=== PATIENT | male | born 1980 | race Caucasian/White ===

== ENCOUNTER → 2020-12-28 14:28 | Outpatient (BNVA) | payer OTHER, SELFPAY | PROVIDERS: PCP Internal Medicine; Referring Provider Internal Medicine; Visit Provider Surgery ==

== ENCOUNTER 2021-01-31 20:08 | Inpatient (IN) | payer OTHER, SELFPAY ==
[2021-01-31 20:47] VITALS: BP 124/64; PULSE 80; TEMP 36.7; O2SAT 99
[2021-01-31] MEDS: Lithium Carbonate ER 450 MG TABLET.ER PO (23:58)
[2021-01-31] MEDS: LORazepam 1 MG TABLET PO (23:58)
[2021-01-31] MEDS: Lithium Carbonate ER 300 MG TABLET.ER PO (23:58)
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
[2021-02-01] MEDS: Levothyroxine Sodium 75 MCG TABLET PO (06:28)
[2021-02-01 08:29] VITALS: BP 104/59; PULSE 64; RESP 18; TEMP 36.5; O2SAT 97
[2021-02-01] MEDS: Nicotine 21 MG PATCH.TD24 TRANSDERMA (08:32)
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
--- NOTE | 2021-02-01 16:12 | P.CONIM_ITS ---
History of Present Illness Data of Consult Service Date: 02/01/21 Requesting physician: Jean Garrido Primary Care Provider: Unknown Physician HPI Reason for consult: Routine Medical H&P This is a 40 yo M with a PMH of hypothyroid who is admitted on M3. Medical services are consulted for routine medical H&P as he has been transferred from another facility. Pt seen and examined in his room. He is comfortable and does not endorse any medical complaints. He endorses a personal history of hypothyroidism for which he is on levothyroxine. Review of Systems Review of Systems: General - no fevers or chills Cardiovascular - no chest pain Respiratory - no shortness of breath or cough Abdominal- no abdominal pain, nausea, vomiting, diarrhea PMFSH Medical History (Updated 02/01/21 @ 14:12 by Jean Garrido) Asthma Bipolar disorder Surgical History History of throat surgery Hx of knee surgery Social History Household Members: None and Other Housing: Apartment Do you presently have visiting nurse or other home services: No Alcohol intake: current Patient Tobacco Use Status: Current everyday Tobacco user Tobacco use type: Cigarette Cigarette Packs Per Day: 1 Cigarettes Per Day: 20.0 Smoked in Last 30 Days: No e-Cigarette/Vaping Use: Currently Using Patient Interested in Nicotine Replacement: Yes Patient Given Instructions on How to Stop Smoking: No Second Hand Smoke Exposure: No Use of substances other than those prescribed or required for medical reasons: No Substance Use Type: Heroin Substance Use Frequency: Daily Currently Displaying Signs/Symptoms of Drug Intoxication Withdrawal: No Have you been hit, kicked, punched, or otherwise hurt by someone within the past year? If so, by whom?: No Do you feel safe in your current relationship?: No Is there a partner from a previous relationship who is making you feel unsafe now?: No Advance Directives: No Advance Directives Information Provided: Yes Do you have thoughts of harming others: None Do you have a plan to hurt others: No Plan Recently lost weight without trying: No Nutrition Risks: No Nutritional Risk Poor oral hygiene: No service: No Sexual orientation: Straight/Heterosexual Meds Allergies Allergy/AdvReac Type Severity Reaction Status Date / Time haloperidol [From HALDOL] Allergy Intermediate SKIN CRAWL Verified 01/31/21 22:18 Active Medications: Current Medications Generic Name Dose Route Start Last Admin Trade Name Freq PRN Reason Stop Dose Admin Acetaminophen 650 mg 01/31/21 20:22 Acetaminophen 325 Mg Tablet PO Q6H PRN Headache/Pain Mild Scale (1-3) Al Hydroxide/Mg Hydroxide 30 ml 01/31/21 20:22 Magnesium Hydrox/Alum Hydrox 30 Ml Oral.Susp PO Q6H PRN Heartburn/Nausea Albuterol Sulfate 2 puff 01/31/21 21:15 Albuterol Sulfate 90 Mcg 8 Gm Inhaler INHALE Q4H PRN Shortness Of Breath Or Wheezing Amphetamine/Dextroamphetamine 30 mg 02/02/21 09:00 Dextroamphetami/Amphetamine Xr 10 Mg Cap.Er.24h PO DAILY [facility] Amphetamine/Dextroamphetamine 30 mg 02/01/21 11:15 02/01/21 12:15 Dextroamphetami/Amphetamine Xr 10 Mg Cap.Er.24h PO 30 mg ONCE [facility] Administration Dextroamphetamine Sulfate 10 mg 02/01/21 16:00 Dextroamphetamine Sulfate 5 Mg Tablet PO DAILY [facility] Hydroxyzine HCl 25 mg 01/31/21 20:22 Hydroxyzine Hcl 25 Mg Tablet PO BEDTIME PRN Anxiety Levothyroxine Sodium 75 mcg 02/01/21 06:00 02/01/21 06:28 Levothyroxine Sodium 75 Mcg Tablet PO 75 mcg DAILY@0600 [facility] Administration [place] Carbonate 1,200 mg 01/31/21 22:00 02/01/21 00:09 [place] Carbonate Er 300 Mg Tablet.Er PO Not Given BEDTIME [facility] Lorazepam 1 mg 01/31/21 20:36 01/31/21 23:58 Lorazepam 1 Mg Tablet PO 1 mg TID PRN Administration Anxiety Lorazepam 1 mg 02/01/21 15:24 Lorazepam 1 Mg Tablet PO 02/05/21 15:23 Q2H PRN Breakthrough alcohol withdrawa Magnesium Hydroxide 30 ml 01/31/21 20:22 Milk Of Magnesia 30 Ml Oral.Susp PO DAILY PRN Constipation Nicotine 21 mg 02/01/21 09:00 02/01/21 08:32 Nicotine 21 Mg Patch.Td24 TRANSDERMA 21 mg DAILY [facility] Administration Nicotine Polacrilex 4 mg 01/31/21 20:32 Nicotine Polacrilex 2 Mg Gum BUCCAL Q2H PRN Nicotine Cravings Trazodone HCl 50 mg 01/31/21 20:22 Trazodone Hcl 50 Mg Tablet PO BEDTIME PRN Insomnia Home Medications Medication Instructions Recorded Confirmed Last Taken Type dextroamphetamine 10 mg tablet 10 mg PO BEDTIME 12/28/20 01/31/21 01/30/21 History dextroamphetamine-amphetamine ER 1 cap PO DAILY 12/28/20 01/31/21 01/31/21 10:21 History 30 mg 24hr capsule,extend release levothyroxine 75 mcg tablet 75 mcg PO DAILY 12/28/20 01/31/21 01/31/21 07:50 History lithium carbonate 300 mg 1,200 mg PO BEDTIME 12/28/20 01/31/21 01/31/21 10:21 History tablet,extended release lorazepam 1 mg tablet 1 mg PO TID PRN 12/28/20 01/31/21 01/31/21 12:50 History albuterol sulfate [ProAir HFA] 2 puff INHALATION Q4H PRN 01/31/21 01/31/21 Unknown History Physical Exam Vital Signs and Narrative: Vital Signs: Last Vital Signs Temp 97.7 F 02/01/21 08:29 Pulse 64 02/01/21 08:29 Resp 18 02/01/21 08:29 BP 104/59 L 02/01/21 08:29 Pulse Ox 97 02/01/21 08:29 Const: Other: General - no acute distress, appears comfortable Cardiovascular - regular rate and rhythm, S1-S2 Lungs - normal respiratory effort, clear to auscultation bilaterally, no wheezing Abdomen - soft, nontender, no rebound or guarding Extremities - no edema bilaterally Neuro - awake and alert, no focal deficits Assessment and Plan (1) Hypothyroidism: Status: Acute This is a 40 yo M with a PMH of hypothyroidism, ENZO s/p surgery (? presumed uvulopalatopharyngoplasty - UPPP) who is admitted to . Medical consultation sought for routine medical H&P. Patient has no active medical issues. Continue his baseline synthroid. Perform routine blood work if not completed at transferring facility or if abnormal, repeat it here. Continue care per primary team. Please re-consult if any issues arise.
[2021-02-01] MEDS: Dextroamphetamine Sulfate 5 MG TABLET 10 MG PO (17:22)
[2021-02-01 18:46] LABS: Amphetamine Screen Urine POSITIVE (Not Detect); Barbiturates, Urine Not Detected (Not Detect); Benzodiazepines Screen Urine Not Detected (Not Detect); Cannabinoid Screen Urine Not Detected (Not Detect); Cocaine Screen Urine Not Detected (Not Detect); Opiate Screen Urine Not Detected (Not Detect); Phencyclidine Screen Urine Not Detected (Not Detect)
[2021-02-01] MEDS: Lithium Carbonate ER 300 MG TABLET.ER 1200 MG PO (20:55)
[2021-02-01] MEDS: LORazepam 1 MG TABLET PO (21:05)
[2021-02-01 21:36] VITALS: BP 119/77; PULSE 88; TEMP 36.7; O2SAT 98
[2021-02-02] MEDS: Levothyroxine Sodium 75 MCG TABLET PO (06:23)
[2021-02-02] MEDS: Nicotine 21 MG PATCH.TD24 TRANSDERMA (09:08)
[2021-02-02 09:22] VITALS: BP 118/81; PULSE 73; RESP 18; TEMP 36.3; O2SAT 99
[2021-02-02] MEDS: ARIPiprazole 5 MG TABLET PO (12:23)
--- NOTE | 2021-02-02 14:07 | HO.PSYCHPN ---
Subjective Subjective Date of Service: 02/02/21 Reason For Visit: SI Interim History: pt in a better mood this morning, rouses himself from bed, less irritable, comes with MD to interview room. continues to reject the narrative of his female friend and the police. states he is not manic but has been spending more time depressed if anything in recent days. willing to discuss antidepressants. reports negative reactions to SSRIs and wellbutrin in the past (reliability of report unclear, memory ppor, does not recall specifics). agreeable to try abilify 5 mg for antidepressant and mood stabilizing effects. per staff, not attending groups, isolating. denying narrative in the medical record. Mental Status Exam Mental Status Exam Narrative: lying in bed late morning. disheveled, poorly groomed. cooperative with interview. no PMA/PMR. speech nml in amount, rate, loudness, latency, prosody. thoughts linear and logical, just highly divergent from the information contained in the medical record. affect flexible, normo-intense, consistent with words and context, non-labile. mood depressed. denies SI. no HI/AVH endorsed. denies heavy alcohol consumption. Diagnostics Vital Signs (24Hr): Vital Signs - 24 hr 02/01/21 21:36 02/02/21 09:22 Temperature 98.0 F 97.3 F Pulse Rate 88 73 Respiratory Rate 18 Blood Pressure 119/77 118/81 Pulse Oximetry 98 99 Labs Labs: Laboratory Results - last 48 hr 02/01/21 18:10 Urine Opiates Screen Not Detected Ur Barbiturates Screen Not Detected Ur Phencyclidine Scrn Not Detected Ur Amphetamines Screen POSITIVE H U Benzodiazepines Scrn Not Detected Urine Cocaine Screen Not Detected U Marijuana (THC) Screen Not Detected Medications Medications Current Medications Generic Name Dose Route Start Last Admin Trade Name Freq PRN Reason Stop Dose Admin Acetaminophen 650 mg 01/31/21 20:22 Acetaminophen 325 Mg Tablet PO Q6H PRN Headache/Pain Mild Scale (1-3) Al Hydroxide/Mg Hydroxide 30 ml 01/31/21 20:22 Magnesium Hydrox/Alum Hydrox 30 Ml Oral.Susp PO Q6H PRN Heartburn/Nausea Albuterol Sulfate 2 puff 01/31/21 21:15 Albuterol Sulfate 90 Mcg 8 Gm Inhaler INHALE Q4H PRN Shortness Of Breath Or Wheezing Amphetamine/Dextroamphetamine 30 mg 02/02/21 09:00 02/02/21 09:08 Dextroamphetami/Amphetamine Xr 10 Mg Cap.Er.24h PO 30 mg DAILY [facility] Administration Amphetamine/Dextroamphetamine 30 mg 02/01/21 11:15 02/01/21 12:15 Dextroamphetami/Amphetamine Xr 10 Mg Cap.Er.24h PO 30 mg ONCE [facility] Administration Aripiprazole 5 mg 02/03/21 09:00 Aripiprazole 5 Mg Tablet PO DAILY [facility] Dextroamphetamine Sulfate 10 mg 02/02/21 16:00 Dextroamphetamine Sulfate 5 Mg Tablet PO DAILY@1600 [facility] Hydroxyzine HCl 25 mg 01/31/21 20:22 Hydroxyzine Hcl 25 Mg Tablet PO BEDTIME PRN Anxiety Levothyroxine Sodium 75 mcg 02/01/21 06:00 02/02/21 06:23 Levothyroxine Sodium 75 Mcg Tablet PO 75 mcg DAILY@0600 [facility] Administration [place] Carbonate 1,200 mg 01/31/21 22:00 02/01/21 20:55 [place] Carbonate Er 300 Mg Tablet.Er PO 1,200 mg BEDTIME [facility] Administration Lorazepam 1 mg 01/31/21 20:36 02/01/21 21:05 Lorazepam 1 Mg Tablet PO 1 mg TID PRN Administration Anxiety Lorazepam 1 mg 02/01/21 15:24 Lorazepam 1 Mg Tablet PO 02/05/21 15:23 Q2H PRN Breakthrough alcohol withdrawa Magnesium Hydroxide 30 ml 01/31/21 20:22 Milk Of Magnesia 30 Ml Oral.Susp PO DAILY PRN Constipation Nicotine 21 mg 02/01/21 09:00 02/02/21 09:08 Nicotine 21 Mg Patch.Td24 TRANSDERMA 21 mg DAILY [facility] Administration Nicotine Polacrilex 4 mg 01/31/21 20:32 Nicotine Polacrilex 2 Mg Gum BUCCAL Q2H PRN Nicotine Cravings Trazodone HCl 50 mg 01/31/21 20:22 Trazodone Hcl 50 Mg Tablet PO BEDTIME PRN Insomnia Allergies Allergies Allergy/AdvReac Type Severity Reaction Status Date / Time haloperidol [From HALDOL] Allergy Intermediate SKIN CRAWL Verified 01/31/21 22:18 Assessment & Plan Assessment & Plan (1) Hypothyroidism: Status: Acute Code(s): E03.9 - Hypothyroidism, unspecified Assessment and Plan: continue synthroid. consider checking TSH. (2) Bipolar disorder: Status: Acute Code(s): F31.9 - Bipolar disorder, unspecified Assessment and Plan: continue lithium; level in ED was 0.8, so no dose change indicated and pt has been compliant. started abilify for mood stabilizing and antidepressant effect on 02/02. personality factors may also being playing a substantial role in pt's behaviors. keep on the differential Dx. (3) Alcohol use disorder: Status: Acute Assessment and Plan: monitor for withdrawal symptoms and medicate as indicated. question of interaction between bipolar diathesis and drinking in controlling pt's recent behaviors. Greater than 50% of the session was spent on counseling and/or coordination of care Reason for contiued inpatient stay Substantial Risk for: harm to self
[2021-02-02] MEDS: Dextroamphetamine Sulfate 5 MG TABLET 10 MG PO (16:02)
[2021-02-02] MEDS: LORazepam 1 MG TABLET PO (18:44)
[2021-02-02 20:00] VITALS: BP 127/78; PULSE 94; RESP 18; TEMP 36.8; O2SAT 98
[2021-02-02] MEDS: Lithium Carbonate ER 300 MG TABLET.ER 1200 MG PO (21:21)
--- NOTE | 2021-02-02 23:57 | PC.NURSE ---
Toro is asleep in bed. No signs of acute alcohol withdrawal. Patient appears to be resting comfortably. Full CIWA assessment not done. Nurse will continue to monitor patient.
[2021-02-03] MEDS: LORazepam 1 MG TABLET PO (01:08)
--- NOTE | 2021-02-03 03:59 | PC.NURSE ---
Patient is currently sleeping. No signs of active withdrawal noted. Full CIWA assessment not done. Nurse will continue to monitor.
[2021-02-03 06:00] VITALS: BP 126/75; PULSE 72; RESP 18; TEMP 35.8; O2SAT 96
[2021-02-03] MEDS: Levothyroxine Sodium 75 MCG TABLET PO (06:50)
[2021-02-03] MEDS: ARIPiprazole 5 MG TABLET PO (08:52)
[2021-02-03] MEDS: Nicotine 21 MG PATCH.TD24 TRANSDERMA (09:06)
--- NOTE | 2021-02-03 13:37 | P.PNPSI_ITS ---
Subjective Subjective Date of Service: 02/03/21 Reason For Visit: SI Interim History: pt found late morning reading in bed. comes with MD to interview room. reports no negative side effects from abilify yesterday, although states he remains a bit sleepy. not sure he got the abilify yesterday. reports not sleeping terriboly well due to noise on the unit. mood OK. per staff, 3-day in, not scoring on CIWA. will DC CIWA protocol as no longer necessary. Mental Status Exam Mental Status Exam Narrative: lying in bed reading late morning. adequately groomed. cooperative with interview. no PMA/PMR. speech nml in amount, rate, loudness, latency, prosody. thoughts linear and logical. affect flexible, normo-intense, consistent with words and context, non-labile. mood OK. no SI/HI/AVH endorsed. Diagnostics Vital Signs (24Hr): Vital Signs - 24 hr 02/02/21 20:00 02/03/21 06:00 Temperature 98.2 F 96.5 F L Pulse Rate 94 72 Respiratory Rate 18 18 Blood Pressure 127/78 126/75 Pulse Oximetry 98 96 Labs Labs: Laboratory Results - last 48 hr 02/01/21 18:10 Urine Opiates Screen Not Detected Ur Barbiturates Screen Not Detected Ur Phencyclidine Scrn Not Detected Ur Amphetamines Screen POSITIVE H U Benzodiazepines Scrn Not Detected Urine Cocaine Screen Not Detected U Marijuana (THC) Screen Not Detected Medications Medications Current Medications Generic Name Dose Route Start Last Admin Trade Name Freq PRN Reason Stop Dose Admin Acetaminophen 650 mg 01/31/21 20:22 Acetaminophen 325 Mg Tablet PO Q6H PRN Headache/Pain Mild Scale (1-3) Al Hydroxide/Mg Hydroxide 30 ml 01/31/21 20:22 Magnesium Hydrox/Alum Hydrox 30 Ml Oral.Susp PO Q6H PRN Heartburn/Nausea Albuterol Sulfate 2 puff 01/31/21 21:15 Albuterol Sulfate 90 Mcg 8 Gm Inhaler INHALE Q4H PRN Shortness Of Breath Or Wheezing Amphetamine/Dextroamphetamine 30 mg 02/02/21 09:00 02/03/21 08:51 Dextroamphetami/Amphetamine Xr 10 Mg Cap.Er.24h PO 30 mg DAILY [facility] Administration Amphetamine/Dextroamphetamine 30 mg 02/01/21 11:15 02/01/21 12:15 Dextroamphetami/Amphetamine Xr 10 Mg Cap.Er.24h PO 30 mg ONCE [facility] Administration Aripiprazole 5 mg 02/03/21 09:00 02/03/21 08:52 Aripiprazole 5 Mg Tablet PO 5 mg DAILY [facility] Administration Dextroamphetamine Sulfate 10 mg 02/02/21 16:00 02/02/21 16:02 Dextroamphetamine Sulfate 5 Mg Tablet PO 10 mg DAILY@1600 [facility] Administration Hydroxyzine HCl 25 mg 01/31/21 20:22 Hydroxyzine Hcl 25 Mg Tablet PO BEDTIME PRN Anxiety Levothyroxine Sodium 75 mcg 02/01/21 06:00 02/03/21 06:50 Levothyroxine Sodium 75 Mcg Tablet PO 75 mcg DAILY@0600 [facility] Administration [place] Carbonate 1,200 mg 01/31/21 22:00 02/02/21 21:21 [place] Carbonate Er 300 Mg Tablet.Er PO 1,200 mg BEDTIME [facility] Administration Lorazepam 1 mg 01/31/21 20:36 02/03/21 01:08 Lorazepam 1 Mg Tablet PO 1 mg TID PRN Administration Anxiety Lorazepam 1 mg 02/01/21 15:24 Lorazepam 1 Mg Tablet PO 02/05/21 15:23 Q2H PRN Breakthrough alcohol withdrawa Magnesium Hydroxide 30 ml 01/31/21 20:22 Milk Of Magnesia 30 Ml Oral.Susp PO DAILY PRN Constipation Nicotine 21 mg 02/01/21 09:00 02/03/21 09:06 Nicotine 21 Mg Patch.Td24 TRANSDERMA 21 mg DAILY [facility] Administration Nicotine Polacrilex 4 mg 01/31/21 20:32 Nicotine Polacrilex 2 Mg Gum BUCCAL Q2H PRN Nicotine Cravings Trazodone HCl 50 mg 01/31/21 20:22 Trazodone Hcl 50 Mg Tablet PO BEDTIME PRN Insomnia Allergies Allergies Allergy/AdvReac Type Severity Reaction Status Date / Time haloperidol [From HALDOL] Allergy Intermediate SKIN CRAWL Verified 01/31/21 22:18 Assessment & Plan Assessment & Plan (1) Hypothyroidism: Status: Acute Code(s): E03.9 - Hypothyroidism, unspecified Assessment and Plan: continue synthroid. consider checking TSH. (2) Bipolar disorder: Status: Acute Code(s): F31.9 - Bipolar disorder, unspecified Assessment and Plan: continue lithium; level in ED was 0.8, so no dose change indicated and pt has been compliant. started abilify for mood stabilizing and antidepressant effect on 02/02. personality factors may also being playing a substantial role in pt's behaviors. keep on the differential Dx. (3) Alcohol use disorder: Status: Acute Assessment and Plan: no signs of withdrawal during stay, no need for medication. pt not physiologically dependent on alcohol. Greater than 50% of the session was spent on counseling and/or coordination of care Reason for contiued inpatient stay Substantial Risk for: harm to self
[2021-02-03 15:22] LABS: Estimated Average Glucose 74 mg/dL; Hemoglobin A1c % 4.2 %
[2021-02-03 15:38] LABS: Cholesterol 160 mg/dL; HDL Cholesterol 40 mg/dL; LDL Cholesterol Calculated 58 mg/dl; Triglycerides 314 mg/dL
[2021-02-03] MEDS: Dextroamphetamine Sulfate 5 MG TABLET 10 MG PO (15:53)
[2021-02-03 18:00] VITALS: BP 126/86; PULSE 86; RESP 18; TEMP 36.6; O2SAT 100
[2021-02-03] MEDS: hydrOXYzine HCL 50 MG TABLET PO (21:48)
[2021-02-03] MEDS: Lithium Carbonate ER 300 MG TABLET.ER 1200 MG PO (21:48)
[2021-02-04] MEDS: hydrOXYzine HCL 25 MG TABLET PO (01:14)
[2021-02-04 06:00] VITALS: BP 103/69; PULSE 69; RESP 18; TEMP 36.4; O2SAT 100
[2021-02-04] MEDS: Levothyroxine Sodium 75 MCG TABLET PO (06:44)
[2021-02-04] MEDS: Nicotine 21 MG PATCH.TD24 TRANSDERMA (08:23)
[2021-02-04] MEDS: ARIPiprazole 5 MG TABLET PO (08:24)
--- NOTE | 2021-02-04 15:43 | P.PNPSI_ITS ---
Subjective Subjective Date of Service: 02/04/21 Reason For Visit: SI Interim History: pt found early afternoon talking with visitor in interview room. reports no negative side effects from abilify, although states he remains a bit sleepy. agrees to change dosing to HS. reports not sleeping terribly well due to noise on the unit. asks for HS ativan. suggests trazodone, which pt reports did not agree with him, then seroquel, which pt has already tried but can't recall why he doesn't like it. asks MD to reconsider ativan, MD agrees to prescribe while pt is in hospital. would not provide with a script upon discharge (pt reports he has a lot of both ativan and seroquel already at his apartment, in any case). asking for discharge ANTHONY; informs him will wait for friday so proper psych appointments can be made for him. per staff, in bed reading much of the day yesterday. hygiene marginal. minimizing EtOH intake. no interactions with peers yesterday, a bit more visible in the milieu today watching TV some with a peer. Mental Status Exam Mental Status Exam Narrative: received visitor early afternoon. better groomed - has washed his hair at some time in the past 24H. cooperative with interview. no PMA/PMR. speech nml in amount, rate, loudness, latency, prosody. thoughts linear and logical. affect flexible, normo-intense, consistent with words and context, non-labile. no SI/HI/AVH endorsed. Diagnostics Vital Signs (24Hr): Vital Signs - 24 hr 02/03/21 18:00 02/04/21 06:00 Temperature 97.8 F 97.6 F Pulse Rate 86 69 Respiratory Rate 18 18 Blood Pressure 126/86 103/69 Pulse Oximetry 100 100 Labs Labs: Laboratory Results - last 48 hr 02/03/21 02/03/21 14:46 14:46 Estimat Average Glucose 74 Hemoglobin A1c % 4.2 Triglycerides 314 Cholesterol 160 LDL Cholesterol, Calc 58 HDL Cholesterol 40 Medications Medications Current Medications Generic Name Dose Route Start Last Admin Trade Name Freq PRN Reason Stop Dose Admin Acetaminophen 650 mg 01/31/21 20:22 Acetaminophen 325 Mg Tablet PO Q6H PRN Headache/Pain Mild Scale (1-3) Al Hydroxide/Mg Hydroxide 30 ml 06/30/21 20:22 Magnesium Hydrox/Alum Hydrox 30 Ml Oral.Susp PO Q6H PRN Heartburn/Nausea Albuterol Sulfate 2 puff 01/31/21 21:15 Albuterol Sulfate 90 Mcg 8 Gm Inhaler INHALE Q4H PRN Shortness Of Breath Or Wheezing Amphetamine/Dextroamphetamine 30 mg 02/02/21 09:00 02/04/21 08:24 Dextroamphetami/Amphetamine Xr 10 Mg Cap.Er.24h PO 30 mg DAILY REGINA Administration Amphetamine/Dextroamphetamine 30 mg 02/01/21 11:15 02/01/21 12:15 Dextroamphetami/Amphetamine Xr 10 Mg Cap.Er.24h PO 30 mg ONCE REGINA Administration Aripiprazole 5 mg 02/03/21 09:00 02/04/21 08:24 Aripiprazole 5 Mg Tablet PO 5 mg DAILY REGINA Administration Dextroamphetamine Sulfate 10 mg 02/02/21 16:00 02/03/21 15:53 Dextroamphetamine Sulfate 5 Mg Tablet PO 10 mg DAILY@1600 REGINA Administration Hydroxyzine HCl 25 mg 01/31/21 20:22 02/04/21 01:14 Hydroxyzine Hcl 25 Mg Tablet PO 25 mg BEDTIME PRN Administration Anxiety Hydroxyzine HCl 50 mg 02/03/21 21:34 02/03/21 21:48 Hydroxyzine Hcl 50 Mg Tablet PO 50 mg BID PRN Administration Anxiety Levothyroxine Sodium 75 mcg 02/01/21 06:00 02/04/21 06:44 Levothyroxine Sodium 75 Mcg Tablet PO 75 mcg DAILY@0600 REGINA Administration [place] Carbonate 1,200 mg 01/31/21 22:00 02/03/21 21:48 [place] Carbonate Er 300 Mg Tablet.Er PO 1,200 mg BEDTIME REGINA Administration Magnesium Hydroxide 30 ml 01/31/21 20:22 Milk Of Magnesia 30 Ml Oral.Susp PO DAILY PRN Constipation Nicotine 21 mg 02/01/21 09:00 02/04/21 08:23 Nicotine 21 Mg Patch.Td24 TRANSDERMA 21 mg DAILY REGINA Administration Nicotine Polacrilex 4 mg 01/31/21 20:32 Nicotine Polacrilex 2 Mg Gum BUCCAL Q2H PRN Nicotine Cravings Trazodone HCl 50 mg 01/31/21 20:22 Trazodone Hcl 50 Mg Tablet PO BEDTIME PRN Insomnia Allergies Allergies Allergy/AdvReac Type Severity Reaction Status Date / Time haloperidol [From HALDOL] Allergy Intermediate SKIN CRAWL Verified 01/31/21 22:1 8 Assessment & Plan Assessment & Plan (1) Hypothyroidism: Status: Acute Code(s): E03.9 - Hypothyroidism, unspecified Assessment and Plan: continue synthroid. consider checking TSH. (2) Bipolar disorder: Status: Acute Code(s): F31.9 - Bipolar disorder, unspecified Assessment and Plan: continue lithium; level in ED was 0.8, so no dose change indicated and pt has been compliant. started abilify for mood stabilizing and antidepressant effect on 02/02. personality factors may also being playing a substantial role in pt's behaviors. keep on the differential Dx. labs ordered for 7/6 am. (3) Alcohol use disorder: Status: Acute Assessment and Plan: no signs of withdrawal during stay, no need for medication. pt not physiologically dependent on alcohol. Greater than 50% of the session was spent on counseling and/or coordination of care Reason for contiued inpatient stay Substantial Risk for: harm to self
[2021-02-04] MEDS: Dextroamphetamine Sulfate 5 MG TABLET 10 MG PO (16:14)
[2021-02-04] MEDS: Lithium Carbonate ER 300 MG TABLET.ER 1200 MG PO (21:39)
[2021-02-04] MEDS: LORazepam 1 MG TABLET PO (21:42)
[2021-02-05 06:00] VITALS: BP 126/79; PULSE 71; RESP 16; TEMP 34.7; O2SAT 100
[2021-02-05] MEDS: Levothyroxine Sodium 75 MCG TABLET PO (06:41)
[2021-02-05] MEDS: Nicotine 21 MG PATCH.TD24 TRANSDERMA (09:21)
--- NOTE | 2021-02-05 13:38 | HO.PSYCHPN ---
Subjective Subjective Date of Service: 02/05/21 Reason For Visit: SI Interim History: pt found in milieu interacting with staff. on interview no complaints or requests other than he would like to discharge. MD informs him that would have to be tomorrow rather than today so aftercare can be put in place. pt expresses understanding and patience. per staff, pt intermittently visible in milieu. showered, wacthed a bit of TV. moetly isolative. slept well last night (the unit was much quieter than earlier nights). Mental Status Exam Mental Status Exam Narrative: disheveled, no PMA/PMR. cooperative with interview. speech nml in amount, rate, loudness, latency, prosody. thoughts linear and logical. affect flexible, normo-intense, consistent with words and context, non-labile. no SI/HI/AVH endorsed. Diagnostics Vital Signs (24Hr): Vital Signs - 24 hr 02/05/21 06:00 Temperature 94.4 F L Pulse Rate 71 Respiratory Rate 16 Blood Pressure 126/79 Pulse Oximetry 100 Labs Labs: Laboratory Results - last 48 hr 02/03/21 02/03/21 14:46 14:46 Estimat Average Glucose 74 Hemoglobin A1c % 4.2 Triglycerides 314 Cholesterol 160 LDL Cholesterol, Calc 58 HDL Cholesterol 40 Medications Medications Current Medications Generic Name Dose Route Start Last Admin Trade Name Tod PRN Reason Stop Dose Admin Acetaminophen 650 mg 01/31/21 20:22 Acetaminophen 325 Mg Tablet PO Q6H PRN Headache/Pain Mild Scale (1-3) Al Hydroxide/Mg Hydroxide 30 ml 01/31/21 20:22 Magnesium Hydrox/Alum Hydrox 30 Ml Oral.Susp PO Q6H PRN Heartburn/Nausea Albuterol Sulfate 2 puff 01/31/21 21:15 Albuterol Sulfate 90 Mcg 8 Gm Inhaler INHALE Q4H PRN Shortness Of Breath Or Wheezing Amphetamine/Dextroamphetamine 30 mg 02/02/21 09:00 02/05/21 09:18 Dextroamphetami/Amphetamine Xr 10 Mg Cap.Er.24h PO 30 mg DAILY REGINA Administration Amphetamine/Dextroamphetamine 30 mg 02/01/21 11:15 02/01/21 12:15 Dextroamphetami/Amphetamine Xr 10 Mg Cap.Er.24h PO 30 mg ONCE REGINA Administration Aripiprazole 5 mg 02/04/21 21:00 02/04/21 21:55 Aripiprazole 5 Mg Tablet PO Not Given BEDTIME REGINA Dextroamphetamine Sulfate 10 mg 02/02/21 16:00 02/04/21 16:14 Dextroamphetamine Sulfate 5 Mg Tablet PO 10 mg DAILY@1600 REGINA Administration Hydroxyzine HCl 25 mg 01/31/21 20:22 02/04/21 01:14 Hydroxyzine Hcl 25 Mg Tablet PO 25 mg BEDTIME PRN Administration Anxiety Hydroxyzine HCl 50 mg 02/03/21 21:34 02/03/21 21:48 Hydroxyzine Hcl 50 Mg Tablet PO 50 mg BID PRN Administration Anxiety Levothyroxine Sodium 75 mcg 02/01/21 06:00 02/05/21 06:41 Levothyroxine Sodium 75 Mcg Tablet PO 75 mcg DAILY@0600 REGINA Administration [place] Carbonate 1,200 mg 01/31/21 22:00 02/04/21 21:39 [place] Carbonate Er 300 Mg Tablet.Er PO 1,200 mg BEDTIME REGINA Administration Lorazepam 1 mg 02/04/21 15:44 02/04/21 21:42 Lorazepam 1 Mg Tablet PO 1 mg BEDTIME PRN Administration insomnia Magnesium Hydroxide 30 ml 01/31/21 20:22 Milk Of Magnesia 30 Ml Oral.Susp PO DAILY PRN Constipation Nicotine 21 mg 02/01/21 09:00 02/05/21 09:21 Nicotine 21 Mg Patch.Td24 TRANSDERMA 21 mg DAILY REGINA Administration Nicotine Polacrilex 4 mg 01/31/21 20:32 Nicotine Polacrilex 2 Mg Gum BUCCAL Q2H PRN Nicotine Cravings Quetiapine Fumarate 50 mg 02/04/21 15:54 Quetiapine Fumarate 50 Mg Tablet PO BEDTIME PRN anxiety/insomnia Trazodone HCl 50 mg 01/31/21 20:22 Trazodone Hcl 50 Mg Tablet PO BEDTIME PRN Insomnia Allergies Allergies Allergy/AdvReac Type Severity Reaction Status Date / Time haloperidol [From HALDOL] Allergy Intermediate SKIN CRAWL Verified 01/31/21 22:18 Assessment & Plan Assessment & Plan (1) Hypothyroidism: Status: Acute Code(s): E03.9 - Hypothyroidism, unspecified Assessment and Plan: continue synthroid. consider checking TSH. (2) Bipolar disorder: Status: Acute Code(s): F31.9 - Bipolar disorder, unspecified Assessment and Plan: continue lithium; level in ED was 0.8, so no dose change indicated and pt has been compliant. started abilify for mood stabilizing and antidepressant effect on 02/02. personality factors may also being playing a substantial role in pt's behaviors. keep on the differential Dx. labs ordered for 02/06 am. plan to DC 02/[address]. (3) Alcohol use disorder: Status: Acute Assessment and Plan: no signs of withdrawal during stay, no need for medication. pt not physiologically dependent on alcohol. Greater than 50% of the session was spent on counseling and/or coordination of care Reason for contiued inpatient stay Substantial Risk for: harm to self
[2021-02-05] MEDS: Dextroamphetamine Sulfate 5 MG TABLET 10 MG PO (16:02)
[2021-02-05 21:49] VITALS: BP 122/69; PULSE 88; TEMP 36.7
[2021-02-05] MEDS: ARIPiprazole 5 MG TABLET PO (21:54)
[2021-02-05] MEDS: Lithium Carbonate ER 300 MG TABLET.ER 1200 MG PO (21:54)
[2021-02-05] MEDS: LORazepam 1 MG TABLET PO (23:12)
[2021-02-05] MEDS: QUEtiapine Fumarate 50 MG TABLET PO (23:12)
[2021-02-06] MEDS: Levothyroxine Sodium 75 MCG TABLET PO (06:21)
[2021-02-06 07:49] LABS: Lithium 0.97 mmol/L (0.60-1.20)
[2021-02-06 07:53] LABS: Anion Gap 13 (12-20); Blood Urea Nitrogen 15 mg/dL (9-16); Calcium 9.8 mg/dL (8.4-10.2); Carbon Dioxide 21 mmol/L (22-29); Chloride 110 mmol/L (96-108); Estimated Glomerular Filt Rate > 60; Glucose Random 90 mg/dL (60-115); Potassium 4.4 mmol/L (3.3-5.1); Sodium 140 mmol/L (135-145)
[2021-02-06 09:10] VITALS: BP 130/77; PULSE 71; RESP 18; TEMP 36.4; O2SAT 99
[2021-02-06] MEDS: Nicotine 21 MG PATCH.TD24 TRANSDERMA (09:18)
--- NOTE | 2021-02-06 10:00 | PM.PSYDC ---
DS: Providers Provider Date of Service: 02/06/21 Date of admission: 01/31/21 20:08 Primary care physician: Unknown Physician Consults: 02/01/21 14:36 Consult to Hospitalist Routine Consulting Provider: Hospitalist Reason For Exam: admission H&P for M3 DS: Diagnosis Discharge Diagnosis (1) Hypothyroidism: Status: Acute (2) Bipolar disorder: Status: Acute (3) Alcohol use disorder: Status: Acute DS: Medications Discharge Medications Home Medications: Home Medications Medication Instructions Recorded Confirmed levothyroxine 75 mcg tablet 75 mcg PO DAILY 12/28/20 01/31/21 lithium carbonate 300 mg 1,200 mg PO BEDTIME 12/28/20 01/31/21 tablet,extended release albuterol sulfate [ProAir HFA] 2 puff INHALATION Q4H PRN 01/31/21 01/31/21 Previous Rx's Medication Instructions Recorded aripiprazole [Abilify] 5 mg PO BEDTIME #30 tab 02/06/21 dextroamphetamine 10 mg PO BEDTIME #10 tab 02/06/21 dextroamphetamine-amphetamine 1 cap PO DAILY #10 cap 02/06/21 lorazepam 1 mg PO BEDTIME PRN #15 tab 02/06/21 nicotine 21 mg TRANSDERMAL DAILY #30 ea 02/06/21 quetiapine 50 mg PO BEDTIME PRN #30 tab 02/06/21 dextroamphetamine 10 mg PO DAILY 10 Days #10 tab 02/08/21 dextroamphetamine-amphetamine 30 mg PO DAILY 10 Days #10 tab 02/08/21 Discharge Plan Discharge Patient Disposition: Home, Self-Care Discharge Diagnosis: Bipolar Disorder Referrals: Therapy & Psychiatry [Other] Sky Azevedo MD [Physician] - 02/13/21 1:45 pm (Follow up in person. ) Discharge Medications: New nicotine 21 mg/24 hr Patch 24 Hour 21 mg transdermal DAILY Qty: 30 RF: 0 lorazepam 1 mg Tablet 1 mg PO BEDTIME PRN (Reason: insomnia) Qty: 15 RF: 0 aripiprazole [Abilify] 5 mg Tablet 5 mg PO BEDTIME Qty: 30 RF: 0 quetiapine 50 mg Tablet 50 mg PO BEDTIME PRN (Reason: anxiety/insomnia) Qty: 30 RF: 0 dextroamphetamine 10 mg tablet 10 mg PO BEDTIME Qty: 10 RF: 0 dextroamphetamine-amphetamine 30 mg capsule,extended release 24hr 1 cap PO DAILY Qty: 10 RF: 0 dextroamphetamine-amphetamine 30 mg tablet 30 mg PO DAILY 10 Days Qty: 10 RF: 0 dextroamphetamine 10 mg tablet 10 mg PO DAILY 10 Days Qty: 10 RF: 0 Continued albuterol sulfate [ProAir HFA] 90 mcg/actuation Hfa Aerosol Inhaler 2 puff INHALATION Q4H PRN (Reason: Shortness Of Breath Or Wheezing) RF: 0 levothyroxine 75 mcg tablet 75 mcg PO DAILY RF: 0 lithium carbonate 300 mg tablet extended release 1,200 mg PO BEDTIME RF: 0 Discontinued lorazepam 1 mg tablet 1 mg PO TID PRN (Reason: Anxiety) RF: 0 Discharge Orders: Discharge Order (Routine); Ordered 02/06/21 Ordered By: Mercedes Quintanilla Diet: regular diet Activity on Discharge: As tolerated Stand Alone Forms: Patient Portal Discharge page, Community Support Care Plan Goals: 1. Maintain mood 2. No SI/HI Health Concerns: Follow up with PCP Plan of Treatment: 1. Take medications as prescribed 2. Go to nearest ED or call 911 in event of emergency Assessment: Pt denies SI/HI. No signs of aggression towards self or others. Discharge Date/Time: 02/06/21 12:24 Mental Status Exam Mental Status Exam Narrative: none documented on day of discharge DS: Summary Hospital Course Hospital Course: per Hema PYLE 02/02 Progress Note: pt in a better mood this morning, rouses himself from bed, less irritable, comes with MD to interview room. continues to reject the narrative of his female friend and the police. states he is not manic but has been spending more time depressed if anything in recent days. willing to discuss antidepressants. reports negative reactions to SSRIs and wellbutrin in the past (reliability of report unclear, memory ppor, does not recall specifics). agreeable to try abilify 5 mg for antidepressant and mood stabilizing effects. per staff, not attending groups, isolating. denying narrative in the medical record. per Hema PYLE 02/03 Progress Note: pt found late morning reading in bed. comes with MD to interview room. reports no negative side effects from abilify yesterday, although states he remains a bit sleepy. not sure he got the abilify yesterday. reports not sleeping terriboly well due to noise on the unit. mood OK. per staff, 3-day in, not scoring on CIWA. will DC CIWA protocol as no longer necessary. per Hema PYLE 02/04 Progress Note: pt found early afternoon talking with visitor in interview room. reports no negative side effects from abilify, although states he remains a bit sleepy. agrees to change dosing to HS. reports not sleeping terribly well due to noise on the unit. asks for HS ativan. suggests trazodone, which pt reports did not agree with him, then seroquel, which pt has already tried but can't recall why he doesn't like it. asks MD to reconsider ativan, MD agrees to prescribe while pt is in hospital. would not provide with a script upon discharge (pt reports he has a lot of both ativan and seroquel already at his apartment, in any case). asking for discharge ANTHONY; informs him will wait for friday so proper psych appointments can be made for him. per staff, in bed reading much of the day yesterday. hygiene marginal. minimizing EtOH intake. no interactions with peers yesterday, a bit more visible in the milieu today watching TV some with a peer. per Hema PYLE 02/05 Progress Note: pt found in milieu interacting with staff. on interview no complaints or requests other than he would like to discharge. MD informs him that would have to be tomorrow rather than today so aftercare can be put in place. pt expresses understanding and patience. per staff, pt intermittently visible in milieu. showered, wacthed a bit of TV. moetly isolative. slept well last night (the unit was much quieter than earlier nights). Precis: (1) Hypothyroidism: continue synthroid. consider checking TSH. (2) Bipolar disorder: continue lithium; level in ED was 0.8, so no dose change indicated and pt has been compliant. started abilify for mood stabilizing and antidepressant effect on 02/02. personality factors may also being playing a substantial role in pt's behaviors. keep on the differential Dx. DCed 02/06 per pt request. (3) Alcohol use disorder: no signs of withdrawal during stay, no need for medication. pt not physiologically dependent on alcohol. Time Spent with Patient Time attestation: Total time spent providing and/or coordinating discharge services:
--- NOTE | 2021-02-06 12:00 | PC.NURSE ---
PT aware and ready for discharge. Pt denies SI/HI, bright affect, reports good mood. Pt aware of follow up appointment with PCP, Pt declined appointment for therapy and was given information for [facility] with instructions to call if interested. Pt denied anxiety and depression and is future focused. Pt reports understanding of discharge instructions, all questions answered. PT belongings returned, ambulated off unit with steady gait.
== END 2021-02-06 12:24 | disposition home or self-care (01) | DRG 885 ==
PROVIDERS: Admitting Provider Psychiatry & Neurology Psychiatry; Visit Provider Psychiatry & Neurology Psychiatry
DX: F31.9 Bipolar disorder, unspecified (principal); R45.851 Suicidal ideations; E03.9 Hypothyroidism, unspecified; F10.10 Alcohol abuse, uncomplicated; F17.210 Nicotine dependence, cigarettes, uncomplicated; Z71.6 Tobacco abuse counseling; Z79.890 Hormone replacement therapy; Z79.899 Other long term (current) drug therapy
CPT/HCPCS: 36415; 80048; 80061; 80178; 80307; 83036

== ENCOUNTER 2021-12-18 10:23 | Outpatient (REF) | payer OTHER, SELFPAY ==
[2021-12-18 10:42] LABS: MANUAL DIFF FLAG NO
[2021-12-18 11:52] LABS: Basophils Percent Auto 0.6 % (0-2); Eosinophils Absolute Auto 0.1 X10*3/uL (0.0-0.4); Eosinophils Percent Auto 2.1 % (0-4); Hematocrit 43.5 % (42.0-52.0); Hemoglobin 14.7 g/dl (14.0-18.0); Imm Gran Abs Auto 0.02 X10*3/uL (0.00-0.03); Imm Gran Pct Auto 0.4 % (0.0-0.4); Lymphocytes Absolute Auto 1.1 X10*3/uL (1.2-4.9); Lymphocytes Percent Auto 20.2 % (20-40); Mean Corpuscular HGB Conc 33.8 g/dl (31.0-36.0); Mean Corpuscular Hemoglobin 30.8 pg (27.0-33.0); Mean Platelet Volume 9.3 fL (9.4-12.4); Monocytes Absolute Auto 0.5 X10*3/uL (0.1-1.2); Monocytes Percent Auto 10.1 % (2-11); Neutrophils Absolute Auto 3.5 x10*3/uL (2.0-8.3); Neutrophils Percent Auto 66.6 % (45-73); Platelet Count 286 X10*3/uL (160-400); Red Blood Count 4.78 X10*6/uL (4.60-5.80); Red Cell Distribution Width 11.9 % (11.0-16.0); White Blood Count 5.2 X10*3/uL (4.8-10.8)
[2021-12-18 12:24] LABS: Alanine Aminotransferase 28 U/L (0-40); Albumin Level 4.6 g/dL (3.5-5.0); Alkaline Phosphatase 54 U/L (39-117); Anion Gap 10 (12-20); Aspartate Amino Transferase 24 U/L (5-37); Bilirubin Total 0.6 mg/dL (0.0-1.0); Blood Urea Nitrogen 12 mg/dL (9-16); Calcium 9.8 mg/dL (8.4-10.2); Carbon Dioxide 25 mmol/L (22-29); Chloride 108 mmol/L (96-108); Cholesterol 168 mg/dL; Estimated Glomerular Filt Rate > 60; Glucose Fasting 102 mg/dL (60-99); HDL Cholesterol 40 mg/dL; LDL Cholesterol Calculated 102 mg/dl; Potassium 4.8 mmol/L (3.3-5.1); Sodium 138 mmol/L (135-145); Total Protein 7.1 g/dL (6.5-8.0); Triglycerides 134 mg/dL
[2021-12-18 12:30] LABS: Free T4 (Free Thyroxine) 1.05 ng/dL (0.71-1.85); Thyroid Stimulating Hormone 1.53 uIU/mL (0.32-4.0)
== END 2021-12-18 10:24 | disposition home or self-care (01) ==
LOC: HO.LAB 10:23
PROVIDERS: PCP Internal Medicine; Visit Provider Internal Medicine
DX: Z00.00 Encounter for general adult medical examination without abnormal findings (principal); E78.00 Pure hypercholesterolemia, unspecified; R53.83 Other fatigue; Z79.899 Other long term (current) drug therapy
CPT/HCPCS: 36415; 80053; 80061; 80178; 84439; 84443; 85025

== ENCOUNTER 2025-03-29 10:56 | Outpatient (REF) | payer OTHER, SELFPAY ==
--- OUTSIDE RECORDS SUMMARY | 2025-03-29 11:56 | XMS_ITS | Clinical Summary ---
Author Organization [facility] Address [address] [place] [id number] Phone Care Team Providers Care E Marketing Specialist Name Role Phone Sky Azevedo MD Primary Care Provider [phone] Allergies No known active allergies Medications levothyroxine (SYNTHROID, LEVOTHROID) 75 MCG tablet Take 75 mcg by mouth every morning. Active dextroamphetami ne-amphetamine (ADDERALL) 30 mg Tab tablet Take 30 mg by mouth daily. Active nicotine (NICODERM CQ) 14 mg/[address] 1 patch onto the skin daily. Apply to a clean, dry, hairless site on the upper arm or hip. 14 patch 08/17/2018 Active Active Problems Problem Noted Date Diagnosed Date Hypothyroid 08/17/2018 Hx of drug overdose 08/14/2018 Assessment & Plan (08/16/2018 4:04 PM EST): Patient brought to the hospital at initiation of his family due to lithium overdose. Patient also with high blood alcohol level in the ED. he described his overdose as a suicide attempt He was given GoLYTELY as recommended by poison control admitted to the ICU. There lithium level was observed nephrology was consulted. He did not need dialysis. He was transferred to the medical unit when he was felt to be stable. His lithium level has decreased to less than 1 over the hospital stay. [facility] bed available until Thursday 08/17 Immunizations Immunization Administration Dates Next Due Influenza Quadrivalent Prese rvative Free IM 08/17/2018(Deferred: Patient Refused) Social History Tobacco Use Types Packs/Day Years Used Date Smoking Tobacco: Every Day Cigarettes Smokeless Tobacco: Never Comments:0.5-1 ppd Alcohol Use Standard Drinks/Week Comments Yes 0 (1 standard drink = 0.6 oz pur e alcohol) Education Answer Date Recorded Are you interested in more education? Not on laureano e 11/29/2022 Are you concerned about learning? Not on file 11/29/2022 No 11/29/2022 No 11/29/2022 Digital Access Answer Date Recorded No 12/30/2022 No 12/30/2022 No 12/30/2022 Reliable internet access at home? Not on file 12/30/2022 Device with a working camera? Not on file Sex and Gender Information Value Date Recorded Sex Assigned at Male 08/14/2018 6:11 AM EST Legal Sex Male 9:22 PM EDT Gender Identity Male 08/14/2018 6:11 AM EST Sexual Orientation Not on file Last Filed Vital Signs Vital Sign Reading Time Taken Comments Blood Pressure 135/87 08/17/2018 1:00 PM EST Pulse 61 08/17/2018 1:00 PM EST Temperature 36.9 C (98.4 F) 08/17/2018 1:00 PM EST Respiratory Rate 16 08/17/2018 1:00 PM EST Oxygen Saturation 99% 08/17/2018 1:00 PM EST Inhaled Oxygen Concentration - - Weight 93.2 kg (205 lb 8 oz) 08/14/2018 11:15 AM EST Height 182.9 cm (6') 08/14/2018 11:15 AM EST Body Mass Index 27.87 08/14/2018 11:15 AM EST Plan of Treatment Health Maintenance Due Date Last Done Comments Adult Td,Tdap Booster 1979 LIPID PANEL 1979 DEPRESSION SCREENING 1991 SMOKING Hx and SMOKELESS TOB ACCO SCREENING 12/24/1992 HEPATITIS C SCREENING 12/24/1997 HIV ONE-TIME SCREENING (18-6 5 YEARS) 12/24/1997 PNEUMOCOCCAL VACCINES (0-49 years) (1 of 2 - PCV) 12/24/1998 TSH LEVEL 08/16/2019 08/16/2018 COVID-19 VACCINE (1 - 2023-2 5 season) 2024 COLOGUARD 12/24/2024 COLONOSCOPY 12/24/2024 COLORECTAL CANCER SCREENING 12/24/2024 FIT TEST 12/24/2024 FOBT 12/24/2024 SIGMOIDOSCOPY 12/24/2024 VIRTUAL COLONOSCOPY 12/24/2024 HEPATITIS A VACCINES Aged Out No long er eligible based on patient's age to complete this topic HIB VACCINES Aged Out No longer eligi ble based on patient's age to complete this topic MENINGOCOCCAL VACCINES (ACWY) Aged Out No longer eligible based on patient's age to complete this topic MENINGOCOCCAL VACCINES (B) Aged Out N o longer eligible based on patient's age to complete this topic Medical Devices Not on file Procedures Procedure Name Priority Date/Time Associated Diagnosis Comments TSH WITH REFLEX Routine 08/16/2018 5:42 AM EST from Last 3 Months or Most Recently Relevant to Health Maintenance Results * TSH with reflex (08/16/2018 5:42 AM EST) TSH 1.51 0.27 - 4.20 uIU/mL [facility] 08/16/2018 5:42 AM EST 08/17/2018 10:06 AM EST us Noelle Aldrich MD LAB BLOOD ORDERABLES Final Result [facility] [address], [place] [id number] from Last 3 Months or Most Recently Relevant to Health Maintenance [facility] Advance Directives For more information, please contact: [phone] (9AM - 5PM [facility], Friday-Friday) Documents on File Type Date Recorded Patient School Occupational Therapist Expl anation Healthcare Proxy 08/18/2018 12:27 PM * Full Code (Presumed) (Latest Code Status on File) Date Activated Date Inactivated Comments 08/14/2018 2:40 PM 08/17/2018 5:45 PM Care Teams E Marketing Specialist Relationship Specialty Start Date End Date Sky Azevedo MD [address] [place] [id number] PCP - General Internal Medicine 08/14/18 Additional Source Comments The information contained in this document represents components of the legal health record. It is not the complete legal health record.[facility]
[2025-03-29 11:57] LABS: Lithium 0.79 mmol/L (0.60-1.20)
[2025-03-29 12:03] LABS: Hemoglobin A1C 108.0381 umol/L; Total Hemoglobin (HGBA1C) 3803.9173 umol/L
[2025-03-29 12:07] LABS: Cannabinoid Screen Urine Not Detected (Not Detect)
[2025-03-29 12:25] LABS: Anion Gap 14 (12-20); Blood Urea Nitrogen 14 mg/dL (9-16); Calcium 9.9 mg/dL (8.4-10.2); Carbon Dioxide 23 mmol/L (22-29); Chloride 106 mmol/L (96-108); Cholesterol 190 mg/dL (<200); Estimated Glomerular Filt Rate > 60; HDL Cholesterol 42 mg/dL (>40); Potassium 4.7 mmol/L (3.3-5.1); Sodium 138 mmol/L (135-145); Triglycerides 255 mg/dL (<150)
== END 2025-03-29 10:57 | disposition home or self-care (01) ==
LOC: HO.LAB 10:56
PROVIDERS: PCP Internal Medicine; Visit Provider Nurse Practitioner Psychiatric/Mental Health
DX: F31.76 Bipolar disorder, in full remission, most recent episode depressed (principal); Z79.899 Other long term (current) drug therapy; Z13.1 Encounter for screening for diabetes mellitus
CPT/HCPCS: 80048; 80061; 80178; 80307; 83036; 84443